=== PATIENT | male | born 1950 | race Caucasian/White ===

== ENCOUNTER 2019-08-02 06:47 | Day surgery (SDC) | payer MEDICARE, OTHER, SELFPAY ==
[2019-08-01 10:16] VITALS: BMI 31.2
--- NOTE | 2019-08-02 07:03 | W.PM.OPSUD ---
Surgery/Procedure H&P Update DATE OF PROCEDURE: August 02, 2019 DATE H&P PERFORMED: 08/02/19 H&P UPDATE INFORMATION: I have reviewed H&P completed within last 30 days, I have examined patient prior to procedure and No changes to prior documentation PREOP DIAGNOSIS: gerd PLANNED PROCEDURE: Operation Date: 08/02/19 08:00 Proposed Procedures p EGD(Not Applicable) - Matty Liang MD
[2019-08-02 07:15] VITALS: BP 133/79; PULSE 95; RESP 18; TEMP 36.3; O2SAT 94
[2019-08-02] MEDS: sodium chloride 0.9% 1,000 ML 30 ML (07:28)
--- NOTE | 2019-08-02 07:31 | P.ANESASSM_ITS ---
Pre-Anesthetic Assessment Pre-Anesthetic Assessment: Height/Weight: Height 1.78 m Weight 98.883 kg Temp Pulse Resp BP Pulse Ox 97.4 F L 95 18 133/79 94 08/02/19 07:15 08/02/19 07:15 08/02/19 07:15 08/02/19 07:15 08/02/19 07:15 Preop Diagnosis: gerd Proposed Procedure: Operation Date: 08/02/19 08:00 Proposed Procedures p EGD(Not Applicable) - Matty Liang MD Last intake: Intake Last Liquid Date 08/01/19 Last Liquid Time 20:00 Last Solid Date 08/01/19 Last Solid Time 18:00 Social: Social History: No tobacco (quit 4 year ago.) Exam: Pre-Anes Outpt Exam: alert, oriented x 3 and clear to auscultation bilaterally Airway: Submandibular: WNL Cervical ROM: WNL MP: 2 Dentition: Full (upper) Pulmonary: Pulmonary: None reported CV/HEM: CV/HEM: CAD and IA Comments: CABG 2004 3 stents 1 yo ago. 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 no problems- stress test 2 week ago negative. : : None reported Hepatic: Hepatic: None reported GI: GI: GERD Metabolic: Metabolic: DM, Hyperlipidemia and Morbid obesity Comments: BS 206 Musc/skel: Musc/skel: OA/DJD Neuropsych: Neuropsych: Neuropathy Anesthetic Plan: ASA status: 3 Anesthesia: MAC Risk of > 500 ml blood loss (7ml/kg in children): No PFSH Anesthesia PFSH: Medical History (Updated 07/06/19 @ 11:45 by Matty Liang MD) Coronary artery disease Erectile dysfunction Hemorrhoids Hiatal hernia Hypercholesterolemia Type 2 diabetes, controlled, with neuropathy Surgical History H/O cataract extraction H/O esophagogastroduodenoscopy H/O hernia repair History of knee replacement S/P CABG x 4 S/P cholecystectomy Status post colonoscopy Social History Smoking and tobacco status: former smoker Alcohol intake: never Lives independently: Yes Household members: spouse Marital status: Current occupational status: retired History of recent travel: No Data Anesthesia Cardiac Studies: No Data to Display
[2019-08-02 07:49] VITALS: BP 122/79; PULSE 92; RESP 16; TEMP 36.3; O2SAT 96
[2019-08-02 07:58] VITALS: BP 126/80; PULSE 93; RESP 18; O2SAT 96
[2019-08-02 08:08] LABS: Glucose Point of Care 206 mg/dL (70-110)
--- NOTE | 2019-08-02 08:11 | ANE.PACU2 ---
 Inpatient post-anesthesia follow up: Airway intact: Yes Vital signs: Temperature 97.4 F Pulse Rate 93 Respiratory Rate 18 Blood Pressure 126/80 Pulse Oximetry 96 Oxygen Delivery Me thod Room Air Oxygen Flow Rate 3 Fraction of Inspir ed Oxygen Hydration adequate: Yes Nausea and vomiting: No Mental status: Baseline
== END 2019-08-02 08:06 | disposition home or self-care (01) ==
PROVIDERS: Visit Provider Surgery
PROC: 0DJ08ZZ Inspection of Upper Intestinal Tract, Via Natural or Artificial Opening Endoscopic (ICD-10-PCS; CPT 43235; principal; 2019-08-02 08:00)
DX: K21.9 Gastro-esophageal reflux disease without esophagitis (principal); R07.89 Other chest pain; K29.70 Gastritis, unspecified, without bleeding; K44.9 Diaphragmatic hernia without obstruction or gangrene; I25.10 Atherosclerotic heart disease of native coronary artery without angina pectoris; I25.2 Old myocardial infarction; E11.40 Type 2 diabetes mellitus with diabetic neuropathy, unspecified; E66.01 Morbid (severe) obesity due to excess calories; Z68.31 Body mass index [BMI] 31.0-31.9, adult; Z87.891 Personal history of nicotine dependence; Z95.1 Presence of aortocoronary bypass graft
CPT/HCPCS: 12345; 36416; 43235; 82962; J2704; J7030

== ENCOUNTER → 2019-10-24 11:46 | Outpatient (BNVA) | payer MEDICARE, OTHER, SELFPAY | PROVIDERS: PCP Nurse Practitioner Family; Visit Provider Nurse Practitioner Family | DX: E11.65 Type 2 diabetes mellitus with hyperglycemia (principal); Z95.1 Presence of aortocoronary bypass graft; I25.10 Atherosclerotic heart disease of native coronary artery without angina pectoris; R06.00 Dyspnea, unspecified; K21.9 Gastro-esophageal reflux disease without esophagitis; E78.00 Pure hypercholesterolemia, unspecified; J30.89 Other allergic rhinitis | CPT/HCPCS: 80053; 80061; 82044; 83036; 85025 ==

== ENCOUNTER → 2020-01-14 11:50 | Outpatient (BNVA) | payer MEDICARE, OTHER, SELFPAY | PROVIDERS: PCP Nurse Practitioner Family; Visit Provider Nurse Practitioner Family | DX: E11.65 Type 2 diabetes mellitus with hyperglycemia (principal) | CPT/HCPCS: 80053; 80061; 83036; 85025 ==

== ENCOUNTER → 2020-07-03 11:00 | Outpatient (BNVA) | payer MEDICARE, OTHER, SELFPAY | PROVIDERS: PCP Nurse Practitioner Family; Visit Provider Nurse Practitioner Family | DX: E11.65 Type 2 diabetes mellitus with hyperglycemia (principal) | CPT/HCPCS: 80053; 80061; 83036; 85025 ==

== ENCOUNTER → 2021-12-22 16:36 | Outpatient (BNVA) | payer MEDICARE, OTHER, SELFPAY | PROVIDERS: PCP Nurse Practitioner Family; Visit Provider Nurse Practitioner Family | DX: E11.9 Type 2 diabetes mellitus without complications (principal); I25.10 Atherosclerotic heart disease of native coronary artery without angina pectoris; K21.9 Gastro-esophageal reflux disease without esophagitis; Z11.52 Encounter for screening for COVID-19; E78.00 Pure hypercholesterolemia, unspecified; E11.65 Type 2 diabetes mellitus with hyperglycemia; W57.XXXA Bitten or stung by nonvenomous insect and other nonvenomous arthropods, initial encounter; Z12.5 Encounter for screening for malignant neoplasm of prostate; J01.00 Acute maxillary sinusitis, unspecified | CPT/HCPCS: 80053; 80061; 83036; 86618; 86666; 86757; 87635; G0103 ==

== ENCOUNTER 2021-12-28 09:42 | Emergency (ER) | payer MEDICARE, SELFPAY ==
[2021-12-28] VITALS (16 sets, daily range): BP systolic 104–164; BP diastolic 73–100; PULSE 88–105; RESP 16–26; TEMP 36.3; O2SAT 91–96; BMI 29.7
--- NOTE | 2021-12-28 09:44 | XR_ITS ---
WS: [id number] PORTABLE CHEST HISTORY: chest pain COMPARISON: 12/17/2014 Status post CABG. Focal opacification in the RIGHT upper lobe abuts the minor fissure measuring 2.1 x 3.8 cm. There is an additional curvilinear area of atelectasis at the lingula. Additional pleural thickening at the LE FT lung base. No effusion. No pneumothorax. Cardiac size: Mildly enlarged cardiac silhouette. Mediastinum/Aorta: Normal mediastinum. No osseous abnormality seen. XR/XR chest 1V portable [id number] IMPRESSION: 1. RIGHT upper lobe new opacification. Differential includes pneumonia and bobbi plasm. Consider follow-up chest CT with IV contrast. 2. Additional lingular and LEFT basilar areas of atelectasis and/or pleural th ickening.
--- NOTE | 2021-12-28 09:44 | ECG_ITS ---
[facility] Test Date: 2021-12-28 Pat Name: Giovanni Graves Department: Room: Gender: Male Tabber: : 1950 Requested By: Maral Salmeron Order Number: [id number] Freeman MD: Rufus Rosas M.D. Measurements Intervals [place] Rate: 82 P: 42 [place]: 211 QRS: 50 QRSD: 105 T: 25 QT: 366 QTc: 430 Interpretive Statements SINUS RHYTHM WITH FIRST DEGREE AV BLOCK NONSPECIFIC T-WAVE ABNORMALITY Compared to ECG 12/19/2017 13:35:19 First degree AV block now present Sinus tachycardia no longer present T-wave abnormality still present Electronically Signed On 12-28-2021 17:53:16 CDT by Rufus Rosas M.D. [email or web address] ([email or web address] [email or web address]/store/OM/[id number]
--- NOTE | 2021-12-28 10:48 | W.ED.GENADLT ---
HPI - General Adult General: Chief complaint: General Medical Stated complaint: Upper back pain,hurts to breath Time Seen by Provider: 12/28/21 10:48 Source: patient Mode of arrival: ambulatory Limitations: no limitations History of Present Illness: 71-year-old male presents to the emergency room with complaint of upper back pain pain with breathing. Began last evening when he got up to get to the bathroom and felt like it stabbing sensation in the right upper medial scapula. Is worse when he takes a deep breath or when he bends or reaches with his right arm. He has recent been treated for an upper respiratory infection has had some increased phlegm no hematemesis. Has not been particularly short of breath no increase in chest pain last night. The discomfort in his back is reproducible with palpation along the medial edge of the scapula on the right. No skin abnormalities are noted. No radiation of pain no associated dyspnea or diaphoresis Onset (ago): hour(s) Location: back Radiation: non-radiation Severity: moderate Quality: stabbing Relieving factors: immobilization Exacerbating factors: movement Associated symptoms: Deny chest pain, confusion, cough, dyspnea, malaise, nausea, rash or vomiting Review of Systems Const: Denies: fever(s), chills, body aches, change in appetite, fatigue or malaise ENMT: Denies: throat pain, ear or mastoid pain, nasal discharge or nasal congestion Card: Denies: chest pain Resp: Denies: dyspnea, productive cough or non-productive cough GI: Denies: abdominal pain, nausea, vomiting, hematemesis, coffee ground emesis, diarrhea, constipation, bloating, hematochezia or melena : Denies: flank pain, dysuria, urinary frequency or urinary urgency Skin/Breast: Denies: rash or pruritus Neuro: Denies: confusion PFSH ED PFSH: Medical History Coronary artery disease Erectile dysfunction Hemorrhoids Hiatal hernia Hypercholesterolemia Type 2 diabetes, controlled, with neuropathy Surgical History H/O cataract extraction H/O esophagogastroduodenoscopy 08/02/2019: Gastritis, delayed gastric emptying with retained food in the stomach, hiatal hernia H/O hernia repair History of knee replacement S/P CABG x 4 S/P cholecystectomy Status post colonoscopy Family History Father , AT AGE 44 OF A [place] Myocardial infarct Diabetes Mother Hypertension Social History Smoking and tobacco status: never smoked Second hand smoke exposure: Yes Alcohol intake: never Lives independently: Yes Household members: spouse Marital status: Current occupational status: retired History of recent travel: No Current gender identity: Male Physical Exam Const: COMMON NORMALS: no acute distress GENERAL APPEARANCE: cooperative and comfortable ORIENTATION/CONSCIOUSNESS: Yes awake, Yes oriented to person, Yes oriented to place and Yes oriented to time HENMT: COMMON NORMALS: normocephalic, atraumatic, hearing grossly normal bilaterally, external ears normal, EAC's normal, TM's normal bilaterally, Normal nasal mucous membranes and turbinates present, moist oral mucous membranes and oropharynx normal HEAD & SCALP: normocephalic and atraumatic NOSE: Normal nasal mucous membranes and turbinates present EXTERNAL EAR: Yes external ears normal EXTERNAL AUDITORY CANAL: EAC's normal TYMPANIC MEMBRANE: TM's normal bilaterally Neck/C-Spine: COMMON NORMALS: no JVD Resp: COMMON NORMALS: normal respiratory effort, No retractions, No use of accessory muscles and clear to auscultation bilaterally AUSCULTATION: clear to auscultation bilaterally Cardio: COMMON NORMALS: no JVD, regular rate, regular rhythm and No murmurs present (Cardio) RATE: regular rate RHYTHM: regular rhythm GI: COMMON NORMALS: Soft to palpation and No hepatosplenomegaly present AUSCULTATION: Yes normoactive bowel sounds PALPATION: Yes Soft to palpation, No Tenderness to palpation present (GI), No Guarding due to palpation present (GI) and Yes No hepatosplenomegaly present Extremity: COMMON NORMALS: normal to inspection, capillary refill normal, no clubbing, cyanosis or edema, no calf tenderness and no pedal edema Neuro: SENSORIUM/ORIENTATION: Yes oriented to person, Yes oriented to place and Yes oriented to time Skin: COMMON NORMALS: no rashes or lesions noted GENERAL SKIN EXAM: no rashes or lesions noted Course Vital Signs: Vital signs: Vital Signs Temperature 97.4 F L 12/28/21 10:17 Pulse Rate 94 12/28/21 10:17 Respiratory Rate 18 12/28/21 10:17 Blood Pressure 164/88 12/28/21 10:17 Pulse Oximetry 96 12/28/21 10:17 MDM - General Adult Medical Decision Making labs, imaging and EKG reviewed. Discussed findings with patients. Recheck with PCP if not improving. Medical Records I reviewed the patient's medical records. Lab Data I reviewed the patient's lab results. : 12/28/21 11:30 12/28/21 11:30 Radiology Impressions Chest X-Ray 12/28/21 09:44 IMPRESSION: 1. RIGHT upper lobe new opacification. Differential includes pneumonia and neoplasm. Consider follow-up chest CT with IV contrast. 2. Additional lingular and LEFT basilar areas of atelectasis and/or pleural thickening. Laboratory Results WBC 7.6 10^3/uL (4.0-10.0) 12/28/21 11:30 RBC 4.67 10^6/uL (4.1-5.3) 12/28/21 11:30 Hgb 12.7 g/dL (11.7-16.6) 12/28/21 11:30 Hct 40.3 % (42.0-52.0) L 12/28/21 11:30 MCV 86.3 fl (80-94) 12/28/21 11:30 MCH 27.2 pg (28.0-34.0) L 12/28/21 11:30 MCHC 31.5 g/dL (30.0-36.0) 12/28/21 11:30 RDW 15.7 % (12.1-15.1) H 12/28/21 11:30 Plt Count 203 10^3/cmm (130-400) 12/28/21 11:30 MPV 8.8 fL (7.4-10.4) 12/28/21 11:30 Neut % (Auto) 69.4 % 12/28/21 11:30 Lymph % (Auto) 18.5 % 12/28/21 11:30 Bay % (Auto) 10.3 % 12/28/21 11:30 Eos % (Auto) 0.8 % 12/28/21 11:30 Baso % (Auto) 0.5 % 12/28/21 11:30 Neut # (Auto) 5.25 10^3/uL (1.8-7.7) 12/28/21 11:30 Lymph # (Auto) 1.4 10^3/uL (0.8-4.8) 12/28/21 11:30 Bay # (Auto) 0.8 10^3/uL (0.2-0.9) 12/28/21 11:30 Eos # (Auto) 0.1 10^3/uL (0.0-0.8) 12/28/21 11:30 Baso # (Auto) 0.0 10^3/uL (0.0-0.1) 12/28/21 11:30 Nucleated RBC % (auto) 0 % 12/28/21 11:30 Nucleated RBCs # 0.0 /100WBC 12/28/21 11:30 Sodium 134 mmol/L (136-145) L 12/28/21 11:30 Potassium 4.2 mmol/L (3.5-5.1) 12/28/21 11:30 Chloride 97 mmol/L (98-107) L 12/28/21 11:30 Carbon Dioxide 25 mmol/L (22-29) 12/28/21 11:30 Anion Gap 16.2 (5-19) 12/28/21 11:30 BUN 9 mg/dL (8-23) 12/28/21 11:30 Creatinine 0.7 mg/dL (0.7-1.2) 12/28/21 11:30 GFR Calculation Not Reportable 12/28/21 11:30 Glucose 138 mg/dL (65-115) H 12/28/21 11:30 Calculated Osmolality 279 mOsm/kg (285-295) L 12/28/21 11:30 Calcium 10.3 mg/dL (8.5-10.5) 12/28/21 11:30 Total Bilirubin 1.4 mg/dL (0.15-1.2) H 12/28/21 11:30 AST 14 U/L (0-40) 12/28/21 11:30 ALT 9 U/L (0-41) 12/28/21 11:30 Alkaline Phosphatase 73 IU/L (40-130) 12/28/21 11:30 Troponin T Baseline 30 ng/L (0-15) H 12/28/21 11:30 Troponin T 120 Minute 26.29 ng/L (0-15) H 12/28/21 14:00 Delta Troponin T -3.71 ABS# (0-10) L 12/28/21 14:00 Total Protein 8.0 g/dL (6.6-8.7) 12/28/21 11:30 Albumin 3.9 g/dL (3.5-5.2) 12/28/21 11:30 Globulin 4.1 g/dL (1.3-4.6) 12/28/21 11:30 Discharge Plan Discharge Patient Disposition: Home Clinical Impression: Acute upper back pain Condition: Stable Prescriptions: New prednisone 20 mg tablet 20 mg PO TID Qty: 15 0RF Rx Instructions: 1 p.o. 3 times daily x3 days, 1 p.o. twice daily x2 days, 1 p.o. daily x2 days diclofenac sodium 75 mg tablet,delayed release (DR/EC) 75 mg PO Q12H PRN (Reason: pain) Qty: 20 0RF tizanidine 4 mg capsule 4 mg PO Q6H PRN (Reason: muscle spasticity) Qty: 14 0RF Rx Instructions: do not exceed 3 doses per 24 hrs No Action nitroglycerin [Nitrostat] 0.4 mg tablet, sublingual 0.4 mg SUBLINGUAL Q5M PRN (Reason: Chest Pain) 0RF aspirin [John Chewable Aspirin] 81 mg tablet,chewable 81 mg PO DAILY 0RF montelukast 10 mg tablet 10 mg PO DAILY Qty: 90 1RF metformin 1,000 mg tablet 1,000 mg PO BID Qty: 180 1RF loratadine [Claritin] 10 mg tablet 10 mg PO DAILY Qty: 90 1RF glipizide 10 mg tablet extended release 24hr 10 mg PO BID Qty: 180 1RF Rx Instructions: 1 tab ac breakfast and supper gabapentin 300 mg capsule 300 mg PO BID Qty: 180 1RF carvedilol 3.125 mg tablet 3.125 mg PO BID Qty: 180 1RF Rx Instructions: must administer with a meal/food simvastatin 80 mg tablet 80 mg PO DAILY Qty: 90 1RF doxycycline hyclate 100 mg capsule 100 mg PO BID 10 Days Qty: 20 0RF omeprazole 20 mg capsule,delayed release(DR/EC) 20 mg PO BID Qty: 180 1RF clopidogrel 75 mg tablet See Rx Instructions .ROUTE .COMPLEX Qty: 90 3RF Dose Instruction: TAKE 1 TABLET DAILY, TAKE 2 HOURS AWAY FROM OMEPRAZOLE Rx Instructions: TAKE 1 TABLET DAILY, TAKE 2 HOURS AWAY FROM OMEPRAZOLE Bydureon BCise 2 mg/0.85 mL auto-injector See Rx Instructions .ROUTE .COMPLEX Qty: 10.2 0RF Dose Instruction: INJECT 2 MG (0.85 ML) UNDER THE SKIN EVERY 7 DAYS (NEED APPOINTMENT) Rx Instructions: INJECT 2 MG (0.85 ML) UNDER THE SKIN EVERY 7 DAYS (NEED APPOINTMENT) Metamucil 3.4 gram/5.4 gram Powder 1 tbsp PO DAILY 0RF Rx Instructions: mix into at least 8 oz of water or juice before administering Jardiance 10 mg tablet 10 mg PO DAILY 0RF CoQ-10 100 mg Capsule 100 mg PO DAILY 0RF cholecalciferol (vitamin D3) 25 mcg (1,000 unit) Tablet 25 mcg PO DAILY 0RF Discharge Orders: Discharge ED (Routine); Ordered 12/28/21 Ordered By: Abad Luo Referrals: Jessica Luciano FNP [Primary Care Provider] - Discharge Diet: Usual diet Discharge Activity: Increase activity as tolerated Patient Instructions: Opioid Safety Activity Restrictions/Additional Instructions: If not improving follow-up with your primary care physician Coding Level of Care Code ED Contract Administrative Assistant for Eugene Fwd Exam Comprehensive
[2021-12-28 11:35] LABS: Basophils % 0.5 %; Eosinophils # 0.1 10^3/uL (0.0-0.8); Eosinophils % 0.8 %; Hematocrit 40.3 % (42.0-52.0); Hemoglobin 12.7 g/dL (11.7-16.6); Lymphocytes # 1.4 10^3/uL (0.8-4.8); Lymphocytes % 18.5 %; Mean Corpuscular HGB Conc 31.5 g/dL (30.0-36.0); Mean Corpuscular Hemoglobin 27.2 pg (28.0-34.0); Mean Corpuscular Volume 86.3 fl (80-94); Mean Platelet Volume 8.8 fL (7.4-10.4); Monocytes # 0.8 10^3/uL (0.2-0.9); Monocytes % 10.3 %; Neutrophils # 5.25 10^3/uL (1.8-7.7); Neutrophils % 69.4 %; Nucleated Red Blood Cells % 0 %; Platelet Count 203 10^3/cmm (130-400); Red Blood Count 4.67 10^6/uL (4.1-5.3); Red Cell Distribution Width 15.7 % (12.1-15.1); White Blood Count 7.6 10^3/uL (4.0-10.0)
--- NOTE | 2021-12-28 11:44 | ECG_ITS ---
[facility] Test Date: 2021-12-28 Pat Name: Giovanni Graves Department: Room: Gender: Male Compliance Paralegal: : 1950 Requested By: Maral Salmeron Order Number: [id number] Freeman MD: Rufus Rosas M.D. Measurements Intervals [place] Rate: 87 P: 1 [place]: 180 QRS: 79 QRSD: 104 T: 120 QT: 355 QTc: 428 Interpretive Statements SINUS RHYTHM NONSPECIFIC T-WAVE ABNORMALITY Compared to ECG 12/28/2021 10:47:51 First degree AV block no longer present T-wave abnormality still present Electronically Signed On 12-28-2021 17:57:55 CDT by Rufus Rosas M.D. [id number]
[2021-12-28 11:59] LABS: Troponin(5th) Baseline 30 ng/L (0-15)
[2021-12-28 12:00] LABS: Alanine Aminotransferase 9 U/L (0-41); Albumin Level 3.9 g/dL (3.5-5.2); Alkaline Phosphatase 73 IU/L (40-130); Anion Gap 16.2 (5-19); Aspartate Amino Transferase 14 U/L (0-40); Blood Urea Nitrogen 9 mg/dL (8-23); Calcium 10.3 mg/dL (8.5-10.5); Carbon Dioxide 25 mmol/L (22-29); Chloride 97 mmol/L (98-107); Globulin 4.1 g/dL (1.3-4.6); Glucose 138 mg/dL (65-115); Osmolality Calculated 279 mOsm/kg (285-295); Potassium 4.2 mmol/L (3.5-5.1); Sodium 134 mmol/L (136-145); Total Bilirubin 1.4 mg/dL (0.15-1.2)
[2021-12-28 14:35] LABS: Troponin 5 2HR 26.29 ng/L (0-15)
[2021-12-28 14:38] LABS: Troponin 5 2HR Delta -3.71 ABS# (0-10)
[2021-12-28] MEDS: dexamethasone 10 mg/mL INJ IVP (15:28)
[2021-12-28] MEDS: ketorolac 30 mg/mL INJ 15 MG IVP (15:28)
[2021-12-28] MEDS: orphenadrine 30 mg/mL Inj 2 mL 60 MG IVP (15:29)
== END 2021-12-28 16:13 | disposition home or self-care (01) ==
PROVIDERS: Physician Assistant; Emergency Provider Family Medicine; PCP Nurse Practitioner Family
DX: M54.6 Pain in thoracic spine (principal); Z79.82 Long term (current) use of aspirin; Z79.84 Long term (current) use of oral hypoglycemic drugs; Z79.02 Long term (current) use of antithrombotics/antiplatelets; I25.10 Atherosclerotic heart disease of native coronary artery without angina pectoris; E11.40 Type 2 diabetes mellitus with diabetic neuropathy, unspecified; Z95.1 Presence of aortocoronary bypass graft; Z77.22 Contact with and (suspected) exposure to environmental tobacco smoke (acute) (chronic)
CPT/HCPCS: 71045; 80053; 84484; 85025; 93005; 96374; 96375; 99285; J1100; J1885; J2360